=== PATIENT | female | born 1945 | race Caucasian/White ===

== ENCOUNTER 2018-11-23 05:07 | Emergency (ER) | payer MEDICARE, OTHER ==
[~2018-11-23] VITALS: Ht 170.2 cm; Wt 52.2 kg
[2018-11-23] MEDS ORDERED: SYNTHROID75 MCG PO (05:29)
[2018-11-23] MEDS ORDERED: GOLYTELY PACKE1 EACH PO (07:39)
== END 2018-11-23 09:02 | disposition home or self-care (01) ==
LOC: ED 05:07
PROC: 4A0D7LZ Measurement of Urinary Volume, Via Natural or Artificial Opening (ICD-10-PCS; principal; 2018-11-23)
DX: K59.00 Constipation, unspecified (principal); E03.9 Hypothyroidism, unspecified; Z87.891 Personal history of nicotine dependence; Z90.710 Acquired absence of both cervix and uterus; Z90.49 Acquired absence of other specified parts of digestive tract; Z79.899 Other long term (current) drug therapy
CPT/HCPCS: 51798; 71046; 74177; 80053; 81001; 83690; 85025; 96361; 96374; 96375; 99284-25; J1170; J2405; J7040; Q9967